=== PATIENT | female | born 1945 | race Caucasian/White ===

== ENCOUNTER → 2019-06-22 10:53 | Outpatient (ROUT) | payer OTHER, SELFPAY ==
[2019-06-22 11:01] LABS: INR 1.8 (0.9-1.3); Prothrombin Time 20.2 SECONDS (10.1-12.7)
== END ==
PROVIDERS: Visit Provider Family Medicine
DX: I74.09 Other arterial embolism and thrombosis of abdominal aorta (principal)
CPT/HCPCS: 85610

== ENCOUNTER → 2019-10-21 10:24 | Outpatient (ROUT) | payer OTHER, SELFPAY ==
[2019-10-21 10:32] LABS: INR 1.2 (0.9-1.3); Prothrombin Time 13.9 SECONDS (10.1-12.7)
== END ==
PROVIDERS: Visit Provider Family Medicine
DX: I74.09 Other arterial embolism and thrombosis of abdominal aorta (principal)
CPT/HCPCS: 85610

== ENCOUNTER → 2019-10-26 16:18 | Outpatient (ROUT) | payer OTHER, SELFPAY ==
[2019-10-26 16:52] LABS: Prothrombin Time 60.1 SECONDS (10.1-12.7)
[2019-10-26 17:45] LABS: INR 5.3 (0.9-1.3)
== END ==
PROVIDERS: Visit Provider Family Medicine
DX: I74.09 Other arterial embolism and thrombosis of abdominal aorta (principal)
CPT/HCPCS: 85610

== ENCOUNTER 2019-10-29 12:00 | Emergency (ER) | payer OTHER, SELFPAY ==
[2019-10-29] VITALS (7 sets, daily range): BP systolic 153–188; BP diastolic 66–79; PULSE 89–94; RESP 18–25; TEMP 36.9; O2SAT 96–100
--- NOTE | 2019-10-29 12:13 | PC.NURSE ---
reported to dr armenta about possible hyphema to rt eye, no known trauma, but recent INR was elevated. rec'd order for visual acuity.
--- NOTE | 2019-10-29 12:23 | DI.CT.S_ITS ---
PROCEDURE: CT HEAD/BRAIN WO CON INDICATIONS: Anticoagulated. Right hyphema with lateral hemianopsia. TECHNIQUE: Noncontrast 4.5 mm thick angled axial sections acquired from the foramen magnum to the vertex, with coronal and sagittal reformats. For radiation dose reduction, the following was used: automated exposure control, adjustment of mA and/or kV according to patient size. COMPARISON: None. FINDINGS: Image quality: Excellent. CSF spaces: Basal cisterns are patent. No extra-axial fluid collections. The ventricles are symmetric in size and shape. Brain: No intracranial bleeds or masses. There is cerebral volume loss for age, with resultant ventricular and sulcal prominence. There are periventricular and deep white matter chronic small vessel ischemic changes. There is intracranial internal carotid artery atherosclerosis. Skull and face: Calvarium and visualized facial bones appear intact, without suspicious lesions. Sinuses: Visualized sinuses and mastoids are clear. IMPRESSION: No acute intracranial process. Dictated by: Jomar Mays M.D. on 10/29/2019 at 12:55 Approved by: Jomar Mays M.D. on 10/29/2019 at 12:57
--- NOTE | 2019-10-29 12:26 | ED.NEUROSD ---
HPI - Neuro Symptoms/Deficit General Chief Complaint: Neuro Symptoms/Deficit Stated Complaint: states blown right eye and a headache Time Seen by Provider: 10/29/19 12:11 Source: patient Mode of arrival: Wheelchair Limitations: no limitations History of Present Illness HPI Narrative: The patient became aware of what she describes as a blown right eye this morning. She cannot specifically identify a time. She has no history of trauma, she has supraorbital pain. She hs decreased lateral field vision out of the right eye only. Otherwise, the vision is slightly blurred in the right eye, normal for her in the left eye. She has previously been evaluated by Ophthalmology after facial trauma around the right eye, no significant abnormalities were found. This occurred 2 years ago. She also underwent fem-fem bypass about 2 years ago, she is anticoagulated. She was recently treated in an [facility] for elevated INR. She arrives today with current eye symptoms. She has no associated confusion, slurred speech, or memory deficits. She has no facial, or focal extremity weakness or numbness. She has no history of stroke, or arrhythmia. She has no recent fever. She was in [facility] 2 weeks ago with an acute GI bleed, she required transfusion of 3 units of PRBCs. A non-STEMI was noted on admission. She has no chest pain or dyspnea. She has no symptoms of GI illness at this time. Although prescribed Coumadin, she was advised 3 days ago not to use the medication. She is supposed to restart the medication tomorrow. On Anticoagulants: Yes (warfarin) Related Data Allergies Allergy/AdvReac Type Severity Reaction Status Date / Time No Known Drug Allergies Allergy Verified 10/29/19 12:18 Review of Systems Constitutional Constitutional: Denies chills, Denies fatigue, Denies fever(s) and Denies weakness Eyes Eyes: Reports as per HPI ENT Ears, Nose, Mouth, and Throat: Denies neck pain Comments: No additional ENT complaints. Cardiovascular Cardiovascular: Denies chest pain, Denies irregular heart rhythm, Denies lightheadedness and Denies dyspnea Respiratory Respiratory: Denies chest congestion, Denies cough and Denies dyspnea Gastrointestinal Gastrointestinal: Denies abdominal pain, Denies change in bowel habits, Denies diarrhea, Denies nausea and Denies vomiting Musculoskeletal Musculoskeletal: Denies arthralgias, Denies back pain, Denies neck pain and Denies numbness Integumentary/Breasts Skin/Breast: Denies pruritus, Denies erythema, Denies rash and Denies wounds Neurologic Neurologic: Denies confusion, Denies numbness and Denies weakness Psychiatric Psychiatric: Denies anxiety, Denies confusion and Denies depression Endocrine Endocrine: Denies fatigue and Denies flushing Hematologic/Lymphatic Comments: Anticoagulated Patient History Medical History GI bleed (Acute) Non-ST elevated myocardial infarction (non-STEMI) (Acute) Surgical History S/P femoropopliteal bypass surgery (Acute) Social History Smoking Status: Current every day smoker Smoking Status: Current every day smoker alcohol intake frequency: 0-2 drinks per day Substance Use Type: does not use Exam Initial Vital Signs Initial Vital Signs: Vital Signs Pulse Rate 91 H 10/29/19 12:09 Pulse Oximetry 96 10/29/19 12:09 Const General: cooperative and well developed Nutritional Appearance: well nourished HENMO Mouth: oral mucosae normal Throat: posterior oropharynx normal Eyes Periorbital: periorbital findings normal Eyelids: eyelids normal EOM: EOM intact bilaterally Other: Pupils are asymmetric, the left tube in 3 mm, the right pupil being 4-5 mm. She has a significant right hyphema. Neck Neck: No JVD Chest Chest: normal inspection of the chest Resp Effort & Inspection: normal respiratory effort, able to speak in complete sentences, no respiratory distress and no use of accessory muscles Auscultation: clear to auscultation bilaterally, no rales, no rhonchi and no wheezes Cardio Rate: regular rate Rhythm: regular rhythm Heart Sounds: S1 normal, S2 normal, no click, no gallops, no murmurs and no rubs Pulses: normal peripheral pulses Skin General: no rashes or lesions noted, No jaundice and No petechiae Neuro General: patient alert, patient oriented x3, gait normal and no focal motor deficits Speech: speech normal Extrem General: full ROM, no clubbing, cyanosis or edema, no pedal edema and no calf tenderness Course Course Course Narrative: The evaluation revealed a normal head CT, but an elevated INR at 4.3. She has been off the Coumadin for 3 days. She is evaluated by Dr. Maite Jimenez, ophthalmology, following the CT. She noted the hyphema and the pupil dilatation. She is finding no other significant pathology, but noting the vision is not optimal. She is ranging contact with a retinal specialist tomorrow. In the interim the patient is advised to not use the Coumadin for the next 4 days. I discussed the case with her PCM this partner. . She agrees with the discharge plan. She will relay the information to Dr. Matos, the patient's PCM, suggesting follow-up next week to readdress the INR. Orders Ordered: ED Orders 10/29/19 12:23 CT head/brain wo con Stat EKG-12 Lead Stat 10/29/19 12:34 Basic Metabolic Panel Stat Complete Blood Count AUTO DIFF Stat Partial Thromboplastin Time Stat Prothrombin Time INR Stat 10/29/19 14:00 Urine Culture Stat Urine Microscopic Stat Discontinued Medications Sodium Chloride (Normal Saline 0.9%) 1,000 mls @ 150 mls/hr IV CONT HORTENSIA Last Admin: 10/29/19 13:51 Dose: Not Given Documented by: SHASTA Vital Signs Vital signs: Vital Signs - 8 hr 10/29/19 12:09 10/29/19 12:18 10/29/19 12:22 Temperature 98.5 F Pulse Rate 91 H 93 H Respiratory Rate 18 Blood Pressure 188/79 H Pulse Oximetry 96 98 10/29/19 12:32 10/29/19 12:48 10/29/19 13:00 Temperature Pulse Rate 91 H 90 89 Respiratory Rate Blood Pressure 161/70 H 156/66 H Pulse Oximetry 99 100 99 10/29/19 13:30 Temperature Pulse Rate 94 H Respiratory Rate 25 H Blood Pressure 153/72 H Pulse Oximetry 97 MDM - Neuro Symptoms/Deficit Lab Data Result diagrams: 10/29/19 12:34 10/29/19 12:34 Labs: Lab Results 10/29/19 10/29/19 10/29/19 Range/Units 12:34 12:34 12:34 WBC 14.7 H (4.5-11.0) X10^3/uL RBC 3.27 L (4.0-5.2) X10^6/uL Hgb 9.9 L (12.0-16.0) g/dL Hct 29.6 L (36-46) % MCV 90.7 (80-100) fL MCH 30.4 (26-34) PG MCHC 33.5 (30-36) % RDW 18.2 H (11.6-14.8) % Plt Count 428 H (150-400) X10^3/uL Neut % (Auto) 93.0 H (50-75) % Lymph % (Auto) 4.4 L (25-40) % Cole % (Auto) 2.2 L (3-14) % Eos % (Auto) 0.1 L (2-4) % Baso % (Auto) 0.3 (0-2) % Neut # (Auto) 10337 H (2098-8495) /uL Lymph # (Auto) 700 L (0829-5768) /uL Cole # (Auto) 300 (0-900) /uL Eos # (Auto) 0 (0-450) /uL Baso # (Auto) 0 (0-100) /uL PT 48.4 H D (10.1-12.7) SECONDS INR 4.3 H (0.9-1.3) APTT 70 H (26.4-36.2) SECONDS Sodium 131 L (137-145) mmol/L Potassium 5.2 H (3.4-5.1) mmol/L Chloride 108 H (98-107) mmol/L Carbon Dioxide 18 L (22-32) mmol/L BUN 32 H (7-17) mg/dL Creatinine 2.36 H (0.52-1.04) mg/dL Estimated GFR 20.3 L (>60) mL/min BUN/Creatinine Ratio 13.6 (6-22) Glucose 154 H (80-110) mg/dL Calcium 8.9 (8.4-10.2) mg/dL Urine RBC (0-5/HPF) Urine WBC (0-5/HPF) Ur Squamous Epith Cells (0-5/HPF) Amorphous Sediment Urine Bacteria (None) Urine Mucus (Negative) Ur Culture Indicated? 10/29/19 Range/Units 14:00 WBC (4.5-11.0) X10^3/uL RBC (4.0-5.2) X10^6/uL Hgb (12.0-16.0) g/dL Hct (36-46) % MCV (80-100) fL MCH (26-34) PG MCHC (30-36) % RDW (11.6-14.8) % Plt Count (150-400) X10^3/uL Neut % (Auto) (50-75) % Lymph % (Auto) (25-40) % Cole % (Auto) (3-14) % Eos % (Auto) (2-4) % Baso % (Auto) (0-2) % Neut # (Auto) (8642-1716) /uL Lymph # (Auto) (4339-2916) /uL Cole # (Auto) (0-900) /uL Eos # (Auto) (0-450) /uL Baso # (Auto) (0-100) /uL PT (10.1-12.7) SECONDS INR (0.9-1.3) APTT (26.4-36.2) SECONDS Sodium (137-145) mmol/L Potassium (3.4-5.1) mmol/L Chloride (98-107) mmol/L Carbon Dioxide (22-32) mmol/L BUN (7-17) mg/dL Creatinine (0.52-1.04) mg/dL Estimated GFR (>60) mL/min BUN/Creatinine Ratio (6-22) Glucose (80-110) mg/dL Calcium (8.4-10.2) mg/dL Urine RBC 1-5/hpf (0-5/HPF) Urine WBC >100/hpf H (0-5/HPF) Ur Squamous Epith Cells 0-1 /hpf (0-5/HPF) Amorphous Sediment 1+ Urine Bacteria Many (>30) H (None) Urine Mucus 1+ H (Negative) Ur Culture Indicated? Specimen cultured Urine Dip Bedside Urine Glucose Negative Bedside Urine Bilirubin - Negative Bedside Urine Ketone - Negative Urine Specific [place] 1.020 Bedside Urine Occult Blood + Bedside Urine pH 5.5 Bedside Urine Protein +++ 300 Bedside Urine Urobilinogen - Negative Bedside Urine Nitrite - Negative Bedside Urine Leukocytes +/- [address] scan - head: Radiologist's Impression: [address] [address] [address] Scan Report Signed Patient: Alfredo Deleon KMR#: [id number] : 8Acct:[id number] Age/Sex: 73 / FDate of Service: 10/29/19 Loc: ED Accession Number: [id number] Procedure: CT head/brain wo con Ordering Provider: Jairon Perez MD PROCEDURE: CT HEAD/BRAIN WO CON INDICATIONS: Anticoagulated. Right hyphema with lateral hemianopsia. TECHNIQUE: Noncontrast 4.5 mm thick angled axial sections acquired from the foramen magnum to the vertex, with coronal and sagittal reformats. For radiation dose reduction, the following was used: automated exposure control, adjustment of mA and/or kV according to patient size. COMPARISON: None. FINDINGS: Image quality: Excellent. CSF spaces: Basal cisterns are patent. No extra-axial fluid collections. The ventricles are symmetric in size and shape. Brain: No intracranial bleeds or masses. There is cerebral volume loss for age, with resultant ventricular and sulcal prominence. There are periventricular and deep white matter chronic small vessel ischemic changes. There is intracranial internal carotid artery atherosclerosis. Skull and face: Calvarium and visualized facial bones appear intact, without suspicious lesions. Sinuses: Visualized sinuses and mastoids are clear. IMPRESSION: No acute intracranial process. Dictated by: Jomar Mays M.D. on 10/29/2019 at 12:55 Approved by: Jomar Mays M.D. on 10/29/2019 at 12:57 ECG Data Attestation: I personally reviewed and interpreted this ECG as follows: (Normal sinus rhythm rate 85 beats per minute. Normal intervals. No ectopy. No acute ST T wave changes.) Discharge Plan Departure Patient Disposition: Home Clinical Impression: Hyphema of right eye, Right homonymous hemianopsia Discharge Date/Time: 10/29/19 13:50 Instructions: Hyphema Activity Restrictions/Additional Instructions: You will be going from the the ER to the eye clinic to be seen by Dr. Jimenez today. Referrals: Maite Jimenez MD [Physician] -
[2019-10-29 12:40] LABS: Add Manual Diff / Slide Review NO; Basophils Absolute Auto 0 /uL (0-100); Basophils Percent Auto 0.3 % (0-2); Eosinophils Absolute Auto 0 /uL (0-450); Eosinophils Percent Auto 0.1 % (2-4); Hematocrit 29.6 % (36-46); Hemoglobin 9.9 g/dL (12.0-16.0); Lymphocytes Absolute Auto 700 /uL (1100-4500); Lymphocytes Percent Auto 4.4 % (25-40); Mean Corpuscular HGB Conc 33.5 % (30-36); Mean Corpuscular Hemoglobin 30.4 PG (26-34); Mean Corpuscular Volume 90.7 fL (80-100); Monocytes Absolute Auto 300 /uL (0-900); Monocytes Percent Auto 2.2 % (3-14); Neutrophils Absolute Auto 13600 /uL (1500-7000); Platelet Count 428 X10^3/uL (150-400); Red Blood Cell Count 3.27 X10^6/uL (4.0-5.2); Red Cell Distribution Width 18.2 % (11.6-14.8); White Blood Cell Count 14.7 X10^3/uL (4.5-11.0)
--- NOTE | 2019-10-29 12:43 | PC.NURSE ---
hyphema to right eye, blood in lower chamber of eye. Lateral visual field loss. Reports headache starting this morning. Patent has had recent changes in coumadin dose due to a high INR
[2019-10-29 12:48] LABS: INR 4.3 (0.9-1.3); Prothrombin Time 48.4 SECONDS (10.1-12.7)
[2019-10-29 12:50] LABS: PTT Partial Thromboplastin Tim 70 SECONDS (26.4-36.2)
[2019-10-29 12:58] LABS: BUN Creatinine Ratio 13.6 (6-22); Blood Urea Nitrogen 32 mg/dL (7-17); Calcium 8.9 mg/dL (8.4-10.2); Carbon Dioxide 18 mmol/L (22-32); Chloride 108 mmol/L (98-107); Estimated Glomerular Filt Rate 20.3 mL/min (>60); Glucose 154 mg/dL (80-110); HEMOLYSIS < 15 (0-50); Potassium 5.2 mmol/L (3.4-5.1); Sodium 131 mmol/L (137-145)
[2019-10-29 14:30] LABS: Amorphous Sediment Urine 1+; Bacteria Urine Many (>30); Culture Indicated Urine Specimen Cultured; Mucus Urine 1+ (Negative); RBC Urine 1-5/HPF (0-5/HPF); Squamous Epithelial Cell Urine 0-1 /HPF (0-5/HPF); WBC Urine >100/HPF (0-5/HPF)
== END 2019-10-29 13:50 | disposition home or self-care (01) ==
PROVIDERS: Emergency Provider Emergency Medicine
DX: H21.01 Hyphema, right eye (principal); H53.461 Homonymous bilateral field defects, right side
CPT/HCPCS: 36415; 70450; 80048; 81003; 81015; 85025; 85610; 85730; 87077; 87086; 87186; 93005; 93010; 99284

== ENCOUNTER → 2019-11-11 11:03 | Outpatient (ROUT) | payer OTHER, SELFPAY ==
[2019-11-11 11:10] LABS: INR 0.9 (0.9-1.3); Prothrombin Time 10.2 SECONDS (10.1-12.7)
== END ==
PROVIDERS: Visit Provider Family Medicine
DX: I74.09 Other arterial embolism and thrombosis of abdominal aorta (principal)
CPT/HCPCS: 85610

== ENCOUNTER → 2019-11-25 17:23 | Outpatient (CLI) | payer OTHER, SELFPAY ==
[2019-11-25 18:17] LABS: Add Manual Diff / Slide Review NO; Basophils Absolute Auto 100 /uL (0-100); Basophils Percent Auto 0.8 % (0-2); Eosinophils Absolute Auto 200 /uL (0-450); Eosinophils Percent Auto 2.6 % (2-4); Hematocrit 32.6 % (36-46); Hemoglobin 11.2 g/dL (12.0-16.0); Lymphocytes Absolute Auto 2700 /uL (1100-4500); Lymphocytes Percent Auto 34.1 % (25-40); Mean Corpuscular HGB Conc 34.4 % (30-36); Mean Corpuscular Hemoglobin 31.7 PG (26-34); Mean Corpuscular Volume 92.1 fL (80-100); Monocytes Absolute Auto 600 /uL (0-900); Monocytes Percent Auto 8.1 % (3-14); Neutrophils Absolute Auto 4300 /uL (1500-7000); Neutrophils Percent Auto 54.4 % (50-75); Platelet Count 385 X10^3/uL (150-400); Red Blood Cell Count 3.54 X10^6/uL (4.0-5.2); Red Cell Distribution Width 18.2 % (11.6-14.8)
[2019-11-25 18:20] LABS: INR 0.8 (0.9-1.3); Prothrombin Time 9.6 SECONDS (10.1-12.7)
[2019-11-25 18:28] LABS: Alanine Aminotransferase 14 IU/L (<35); Albumin 3.4 g/dL (3.5-5.0); Alkaline Phosphatase 78 U/L (38-126); Aspartate Aminotransferase 30 IU/L (14-36); BUN Creatinine Ratio 8.3 (6-22); Bilirubin Total 0.2 mg/dL (0.2-1.3); Blood Urea Nitrogen 34 mg/dL (7-17); Calcium 9.2 mg/dL (8.4-10.2); Carbon Dioxide 18 mmol/L (22-32); Chloride 105 mmol/L (98-107); Estimated Glomerular Filt Rate 10.7 mL/min (>60); Globulin 3.3 g/dL (1.7-4.1); Glucose 85 mg/dL (80-110); HEMOLYSIS < 15 (0-50); Potassium 5.2 mmol/L (3.4-5.1); Sodium 132 mmol/L (137-145); Total Protein 6.7 g/dL (6.3-8.2)
[2019-11-25 19:03] LABS: Ferritin 34 ng/mL (11-264)
[2019-11-27 12:08] LABS: Fecal Immunochemical Test Negative (Negative)
== END ==
PROVIDERS: PCP Family Medicine; Referring Provider Family Medicine; Visit Provider Family Medicine
DX: K92.1 Melena (principal); E11.69 Type 2 diabetes mellitus with other specified complication; I10 Essential (primary) hypertension; N18.4 Chronic kidney disease, stage 4 (severe)
CPT/HCPCS: 36415; 80053; 82274; 82728; 85025; 85610

== ENCOUNTER → 2019-12-02 10:47 | Outpatient (ROUT) | payer OTHER, SELFPAY ==
[2019-12-02 11:05] LABS: INR 0.9 (0.9-1.3); Prothrombin Time 10.3 SECONDS (10.1-12.7)
== END ==
PROVIDERS: PCP Family Medicine; Visit Provider Family Medicine
DX: K92.9 Disease of digestive system, unspecified (principal); K92.1 Melena
CPT/HCPCS: 85610